=== PATIENT | female | born 1990 | race Asian ===

== ENCOUNTER 2021-01-08 00:35 | Emergency (ER) | payer MEDICAID ==
[~2021-01-08] VITALS: Ht 157.5 cm; Wt 59.1 kg
[2021-01-08] MEDS ORDERED: PROPARACAINE HCL 0.5% 15 ML OPHTHALMIC SOLUTION OS ONE (03:15)
[2021-01-08] MEDS ORDERED: FLUORESCEIN SODIUM 1 MG STRIP OD ONE (03:15)
[2021-01-08 05:04] VITALS: BP 142/88
== END 2021-01-08 05:51 | disposition home or self-care (01) ==
LOC: EMS 00:36
DX: S05.01XA Injury of conjunctiva and corneal abrasion without foreign body, right eye, initial encounter (principal); X58.XXXA Exposure to other specified factors, initial encounter; Y93.89 Activity, other specified; Y92.89 Other specified places as the place of occurrence of the external cause; Y99.8 Other external cause status
CPT/HCPCS: 99283